=== PATIENT | female | born 1940 | race Caucasian/White ===

== ENCOUNTER 2018-06-16 12:37 | Inpatient (IN) ==
[2018-06-16] MEDS: *HR* HYDROcodone/Acet 5/325 mg TABLET PO PRN (16:44)
[2018-06-16] MEDS: Isosorbide MONOnitrate (24 HR) 60 MG TAB.ER.24H PO SCH (20:32)
[2018-06-16] MEDS: *HR* Enoxaparin 40 MG/0.4 ML SYRINGE SQ SCH (20:39)
[2018-06-16] MEDS: Melatonin 3 MG TABLET PO PRN (20:40)
[2018-06-16] MEDS: Gabapentin 100 MG CAPSULE PO PRN (20:40)
[2018-06-17] MEDS: *HR* HYDROcodone/Acet 5/325 mg TABLET PO PRN ×3 (03:43→17:38)
[2018-06-17 05:26] LABS: Basophils % 0.4 %; Eosinophils # 0.3 K/mcL (0.0-0.6); Eosinophils % 3.4 %; Hematocrit 33.3 % (35.3-44.9); Hemoglobin 11.4 g/dL (11.5-15.4); Immature Granulocytes % 0.5 % (0-4); Lymphocytes # 2.5 K/mcL (0.6-4.6); Lymphocytes % 30.6 %; Mean Corpuscular HGB Conc 34.2 g/dL (31.6-35.5); Mean Corpuscular Hemoglobin 29.9 pg (28.0-33.3); Mean Corpuscular Volume 87.4 fL (83.0-100.0); Mean Platelet Volume 10.8 fL (9.4-12.4); Monocytes # 0.9 K/mcL (0.0-1.3); Monocytes % 11.3 %; Neutrophils # 4.4 K/mcL (1.6-8.9); Platelet Count 214 K/mcL (140-400); Red Blood Count 3.81 M/mcL (3.82-4.97); Red Cell Distribution Width 13.2 % (11.5-14.5); Segmented Neutrophils % 53.8 %
[2018-06-17 05:31] LABS: INR 1.3; Prothrombin Time 14.6 Seconds (9.4-12.1)
[2018-06-17 05:44] LABS: BUN/Creatinine Ratio 22 (6-26); Blood Urea Nitrogen 15 mg/dL (8-23); Calcium 9.5 mg/dL (8.6-10.3); Carbon Dioxide 32 mEq/L (23-29); Chloride 92 mEq/L (98-107); Glucose 156 mg/dL (70-105); Osmolality,Calculated 276 (280-300); Potassium 3.8 mEq/L (3.5-5.1); Sodium 131 mEq/L (136-145); eGFR For Non-African Americans > 60 (> 60)
[2018-06-17] MEDS: hydroCHLOROthiazide 25 MG TABLET PO SCH (08:51)
[2018-06-17] MEDS: Cholecalciferol (D-3) 1,000 UNIT TABLET PO SCH (08:52)
[2018-06-17] MEDS: Loratadine 10 MG TABLET PO SCH (08:52)
[2018-06-17] MEDS: Isosorbide MONOnitrate (24 HR) 60 MG TAB.ER.24H PO SCH ×2 (08:52→20:41)
[2018-06-17] MEDS: Magnesium Oxide 400 MG TABLET PO SCH (08:53)
[2018-06-17] MEDS: *HR* Enoxaparin 40 MG/0.4 ML SYRINGE SQ SCH (08:53)
[2018-06-17] MEDS: [UNRECOGNIZED DRUG - OTHER] PO SCH (08:58)
[2018-06-17] MEDS: (Mirabegron [Myrbetriq] 25 MG) PO SCH (08:58)
[2018-06-17] MEDS ORDERED: Acetaminophen 325 MG TABLET PO PRN (15:02)
--- NOTE | 2018-06-17 15:04 | Internal Med History&Physical ---
Date of Encounter: 06/17/18 Time of Encounter: 14:40 Assessment and Plan (1) Total knee replacement status Current visit: Yes Status: Acute Lovenox has been ordered for DVT prophylaxis. PT and OT evaluations will be done. Analgesics will be given as needed. Qualifiers: Laterality: left Qualified Code(s): Z96.652 - Presence of left artificial knee joint (2) Hypertension Current visit: Yes Status: Chronic Continue captopril and HCTZ. Qualifiers: Hypertension type: essential hypertension Qualified Code(s): I10 - Essential (primary) hypertension (3) Hypothyroidism Current visit: Yes Status: Chronic Continue Synthroid. Check TSH in a.m. Qualifiers: Hypothyroidism type: unspecified Qualified Code(s): E03.9 - Hypothyroidism , unspecified (4) Hyperlipidemia Current visit: Yes Status: Chronic Check lipid profile in a.m. Continue present dose Zocor for now. Qualifiers: Hyperlipidemia type: unspecified Qualified Code(s): E78.5 - Hyperlipidemia , unspecified (5) DJD (degenerative joint disease) Current visit: Yes Status: Chronic Continue Tylenol and [place] prn Qualifiers: Osteoarthritis location: unspecified site Osteoarthritis type: unspecified Qualified Code(s): M19.90 - Unspecified osteoarthritis, unspecified site Internal Medicine - H&P: HPI Chief complaint: Left total knee replacement Admitted From: Hospital to Hospital Transfer Plans for Post Hospital Care: Home History of present illness: Ms. Moe is a 77 year old female who underwent elective left TKR at [facility] earlier this week. Her postop course was unremarkable and she was discharged to [facility] swing bed for rehabilitation therapy prior to returning to independent living. [facility] skeletal history is significant for DJD with chronic low back pain. She has had right carpal tunnel syndrome surgery. She has left carpal tunnel syndrome without surgical intervention yet. She denies gout or other bone joint or muscle disorders. Past Med Surg Social Fam HX - Past Medical History Medical history: arthritis, diabetes, hyperlipidemia, hypertension, thyroid disease Psychiatric history: no psych history - Past Surgical History Surgical History: Additional surgical history: eye implants. partial knee replacement right knee. carpal tunnel surgery left wrist - Social History Smoking Status: Never smoker Smokeless Tobacco Status: No Alcohol use: none Drug use: none - Family History Father Living Status: Hx Family Cardiac Disorders: Yes Mother Living Status: Hx Family Cardiac Disorders: Yes Internal Medicine - H&P: Meds Albuterol Sulfate [Albuterol Inhaler] 2 puff IH Q6HR PRN #1 hfa.aer.ad 04/10/16 [Rx] Captopril [Capoten] 25 mg PO BID 06/16/18 [History] Cholecalciferol (Vitamin D3) [Vitamin D] 4,000 unit PO DAILY 06/16/18 [History] Cranberry Conc/C/Bacill Coag [Azo Cranberry Tablet] 1 each PO DAILY 06/16/18 [ History] Enoxaparin [Lovenox] 40 mg SQ DAILY 06/16/18 [History] Gabapentin [Neurontin] 100 mg PO BID PRN 06/16/18 [History] HYDROcodone/Acet 5/325 mg [[place] 5-325 mg] 1 tab PO Q6H PRN 06/16/18 [History] Hydrochlorothiazide [Microzide] 12.5 mg PO DAILY 06/16/18 [History] Isosorbide MONOnitrate [Isosorbide Mononitrate ER] 60 mg PO BID 06/16/18 [ History] Levothyroxine Sodium [Levoxyl] 100 mcg PO DAILY 06/16/18 [History] Loratadine [Claritin] 10 mg PO DAILY 06/16/18 [History] Magnesium Oxide [Magnesium] 800 mg PO DAILY 06/16/18 [History] Melatonin [Melatin] 3 mg PO HS PRN 06/16/18 [History] Mirabegron [Myrbetriq] 25 mg PO DAILY 06/16/18 [History] Naproxen [Naprosyn] 500 mg PO BID 06/16/18 [History] Omeprazole [PriLOSEC] 1 tab PO DAILY PRN 06/16/18 [History] Oxazepam [Serax] 15 mg PO DAILY 06/16/18 [History] Pravastatin Sodium [Pravachol] 20 mg PO DAILY 06/16/18 [History] 3 Allergy/AdvReac Type Severity Reaction Status Date / Time No Known Allergies Allergy Verified 04/10/16 05:37 All Systems PM: A 10-system review of systems was performed and is negative for pertinent findings except as documented above in the HPI. Review of systems: Gen.: She states her weight is stable the past few months Cardiovascular: She has history of hypertension but denies GA angina DVT or pulmonary embolus. She reports she has "enlarged heart" and has occasional edema. Respiratory: She is a lifelong nonsmoker and has no known chronic lung disease GI: She denies disorders of her liver gallbladder or exocrine pancreas : She has overactive bladder. She denies other kidney or bladder disorders. Neurologic: She denies large distribution strokes or seizures. Endocrine: She has been diagnosed with borderline DM 2. She has hypothyroidism and hyperlipidemia. Hematology/oncology: She was unaware she had mild anemia on labs today. She denies internal malignancies or other blood disorders. Psychiatric: She has anxiety but denies depression or other mental health issues. [place] skeletal: As per history of present illness - Constitutional Vitals: Temp Pulse Resp BP Pulse Ox 98.4 F 92 16 162/94 94 06/17/18 06:25 06/17/18 06:25 06/17/18 06:25 06/17/18 06:25 06/17/18 06:25 Exam: Gen.: She is a well-developed overweight female lying in bed who appears in no acute distress at present time HEENT: Head is atraumatic and normocephalic. Eyes: EOMI. There is no scleral icterus. Mouth: Mucosa is moist. Neck: Supple and nontender. There is no thyromegaly or adenopathy noted. Heart: Regular without murmurs gallops or ectopics Lungs: No wheezes or crackles are heard. Abdomen: Soft and nontender. No masses or guarding are noted. Extremities: There is no cyanosis edema or clubbing noted. Dorsalis pedis and posttibial pulses are trace palpable bilaterally. She has a surgical bandage over the left anterior knee area from recent surgery. Neurologic: Mental status: She is talkative and a good historian. Cranial nerves: Smile is symmetric. Forehead wrinkles bilaterally. Tongue protrudes midline. EOMI. Motor: There is no pronator drift. Cerebellar: Finger to nose is intact bilaterally. Skin: Warm and dry Internal Med - H&P Results - Labs CBC & Chem 7: 06/17/18 05:05 06/17/18 05:05 Labs: Short CBC 06/17/18 Range/Units 05:05 WBC 8.2 (4.3-11.1) K/mcL Hgb 11.4 L (11.5-15.4) g/dL Hct 33.3 L (35.3-44.9) % Plt Count 214 (140-400) K/mcL Neutrophils # 4.4 (1.6-8.9) K/mcL BMP 06/17/18 05:05 Sodium 131 L Potassium 3.8 Chloride 92 L Carbon Dioxide 32 H BUN 15 Creatinine 0.68 Glucose 156 H Calcium 9.5
[2018-06-17] MEDS: Artificial Tears SOLN 15 ML BOTTLE BOTH EYES SCH ×2 (17:37→20:44)
[2018-06-17] MEDS: Melatonin 3 MG TABLET PO PRN (20:42)
[2018-06-17] MEDS: Gabapentin 100 MG CAPSULE PO PRN (20:43)
[2018-06-18] MEDS: *HR* HYDROcodone/Acet 5/325 mg TABLET PO PRN ×3 (01:51→20:09)
[2018-06-18 05:37] LABS: Chol/HDL Ratio 2.5 (0-4.9); Magnesium 1.8 mg/dL (1.6-2.6)
[2018-06-18 05:54] LABS: Thyroid Stimulating Hormone 2.865 mcIU/mL (0.340-5.600)
[2018-06-18] MEDS: hydroCHLOROthiazide 25 MG TABLET PO SCH (09:24)
[2018-06-18] MEDS: Isosorbide MONOnitrate (24 HR) 60 MG TAB.ER.24H PO SCH ×2 (09:25→20:09)
[2018-06-18] MEDS: Loratadine 10 MG TABLET PO SCH (09:25)
[2018-06-18] MEDS: Cholecalciferol (D-3) 1,000 UNIT TABLET PO SCH (09:25)
[2018-06-18] MEDS: Magnesium Oxide 400 MG TABLET PO SCH (09:25)
[2018-06-18] MEDS: *HR* Enoxaparin 40 MG/0.4 ML SYRINGE SQ SCH (09:27)
[2018-06-18] MEDS: [UNRECOGNIZED DRUG - OTHER] PO SCH (09:41)
[2018-06-18] MEDS: FISH OIL PO SCH (09:42)
[2018-06-18] MEDS: (Mirabegron [Myrbetriq] 25 MG) PO SCH (09:42)
[2018-06-18] MEDS: Gabapentin 100 MG CAPSULE PO PRN (14:07)
[2018-06-19] MEDS: Magnesium Oxide 400 MG TABLET PO SCH (08:02)
[2018-06-19] MEDS: Cholecalciferol (D-3) 1,000 UNIT TABLET PO SCH (08:02)
[2018-06-19] MEDS: hydroCHLOROthiazide 25 MG TABLET PO SCH (08:04)
[2018-06-19] MEDS: Isosorbide MONOnitrate (24 HR) 60 MG TAB.ER.24H PO SCH ×2 (08:04→20:22)
[2018-06-19] MEDS: Loratadine 10 MG TABLET PO SCH (08:05)
[2018-06-19] MEDS: *HR* Enoxaparin 40 MG/0.4 ML SYRINGE SQ SCH (08:05)
[2018-06-19] MEDS: FISH OIL PO SCH (08:05)
[2018-06-19] MEDS: [UNRECOGNIZED DRUG - OTHER] PO SCH (08:06)
[2018-06-19] MEDS: Gabapentin 100 MG CAPSULE PO PRN ×2 (08:13→20:23)
[2018-06-19] MEDS: *HR* HYDROcodone/Acet 5/325 mg TABLET PO PRN (09:16)
[2018-06-19 10:39] LABS: Estimated Average Glucose 126 mg/dl
[2018-06-19] MEDS: Melatonin 3 MG TABLET PO PRN (20:22)
[2018-06-20 06:19] LABS: Basophils % 0.4 %; Eosinophils # 0.1 K/mcL (0.0-0.6); Eosinophils % 0.8 %; Hematocrit 33.6 % (35.3-44.9); Hemoglobin 11.6 g/dL (11.5-15.4); Immature Granulocytes % 0.9 % (0-4); Lymphocytes # 2.4 K/mcL (0.6-4.6); Lymphocytes % 24.8 %; Mean Corpuscular HGB Conc 34.5 g/dL (31.6-35.5); Mean Corpuscular Hemoglobin 29.9 pg (28.0-33.3); Mean Corpuscular Volume 86.6 fL (83.0-100.0); Mean Platelet Volume 10.6 fL (9.4-12.4); Monocytes # 0.9 K/mcL (0.0-1.3); Monocytes % 9.4 %; Platelet Count 278 K/mcL (140-400); Red Blood Count 3.88 M/mcL (3.82-4.97); Red Cell Distribution Width 13.2 % (11.5-14.5); Segmented Neutrophils % 63.7 %
[2018-06-20 06:37] VITALS: BP 134/68
[2018-06-20] MEDS: (Mirabegron [Myrbetriq] 25 MG) PO SCH ×2 (07:57→08:47)
[2018-06-20] MEDS: Artificial Tears SOLN 15 ML BOTTLE BOTH EYES SCH (08:00)
[2018-06-20] MEDS: Loratadine 10 MG TABLET PO SCH (08:43)
[2018-06-20] MEDS: Isosorbide MONOnitrate (24 HR) 60 MG TAB.ER.24H PO SCH (08:44)
[2018-06-20] MEDS: hydroCHLOROthiazide 25 MG TABLET PO SCH (08:44)
[2018-06-20] MEDS: *HR* Enoxaparin 40 MG/0.4 ML SYRINGE SQ SCH (08:44)
[2018-06-20] MEDS: FISH OIL PO SCH (08:44)
[2018-06-20] MEDS: Magnesium Oxide 400 MG TABLET PO SCH (08:44)
[2018-06-20] MEDS: [UNRECOGNIZED DRUG - OTHER] PO SCH (08:44)
[2018-06-20] MEDS: Cholecalciferol (D-3) 1,000 UNIT TABLET PO SCH (08:45)
[2018-06-20] MEDS: Gabapentin 100 MG CAPSULE PO PRN (08:51)
--- NOTE | 2018-06-20 12:12 | Discharge Summary ---
Date of Encounter: 06/20/18 Time of Encounter: 12:00 - Discharge Diagnosis (1) Total knee replacement status Priority: Primary Status: Acute Qualifiers: Laterality: left Qualified Code(s): Z96.652 - Presence of left artificial knee joint (2) Hypertension Priority: Secondary Status: Chronic Qualifiers: Hypertension type: essential hypertension Qualified Code(s): I10 - Essential (primary) hypertension (3) Hypothyroidism Priority: Secondary Status: Chronic Qualifiers: Hypothyroidism type: unspecified Qualified Code(s): E03.9 - Hypothyroidism , unspecified (4) Hyperlipidemia Priority: Secondary Status: Chronic Qualifiers: Hyperlipidemia type: unspecified Qualified Code(s): E78.5 - Hyperlipidemia , unspecified (5) DJD (degenerative joint disease) Priority: Secondary Status: Chronic Qualifiers: Osteoarthritis location: unspecified site Osteoarthritis type: unspecified Qualified Code(s): M19.90 - Unspecified osteoarthritis, unspecified site Hospital course: Ms. Moe is a 77 year old female who underwent elective left TKR at [facility] earlier this week. Her postop course was unremarkable and she was discharged to [facility] swing bed for rehabilitation therapy prior to returning to independent living. Initial orders were written by the emergency room physician. I saw her on June 17 and performed the swing bed history and physical. She had physical therapy and occupational therapy evaluations with ongoing interventions. She made rapid progress and felt stable for discharge home on June 20. She was offered longer stay but declined. She will have home health services offered. DME recommendations included bedside commode and frontwheel wheeled walker. She will follow with her PCP and orthopedist within 1 week. Additional lab work done during hospital stay showed hemoglobin A1c 6.0%, BN peptide 38, TSH 2.865, and lipid profile total cholesterol/HDL ratio of 2.5. - Time Spent with Patient Total time spent providing and/or coordinating discharge services: - Discharge Medications Prescriptions: Rivaroxaban [Xarelto] 10 mg PO 1700 #7 tablet Home Medications: Albuterol Sulfate [Albuterol Inhaler] 2 puff IH Q6HR PRN #1 hfa.aer.ad 04/10/16 [Rx] Captopril [Capoten] 25 mg PO BID 06/16/18 [History] Cholecalciferol (Vitamin D3) [Vitamin D3] 4,000 unit PO DAILY 06/16/18 [History] Cranberry Conc/C/Bacill Coag [Azo Cranberry Tablet] 1 each PO DAILY 06/16/18 [ History] Enoxaparin [Lovenox] 40 mg SQ DAILY 06/16/18 [History] Gabapentin [Neurontin] 100 mg PO BID PRN 06/16/18 [History] HYDROcodone/Acet 5/325 mg [[place] 5-325 mg] 1 tab PO Q6H PRN 06/16/18 [History] Hydrochlorothiazide [Microzide] 12.5 mg PO DAILY 06/16/18 [History] Isosorbide MONOnitrate [Isosorbide Mononitrate ER] 60 mg PO BID 06/16/18 [ History] Levothyroxine Sodium [Levoxyl] 100 mcg PO DAILY 06/16/18 [History] Loratadine [Claritin] 10 mg PO DAILY 06/16/18 [History] Magnesium Oxide [Magnesium] 800 mg PO DAILY 06/16/18 [History] Melatonin [Melatin] 3 mg PO HS PRN 06/16/18 [History] Mirabegron [Myrbetriq] 25 mg PO DAILY 06/16/18 [History] Omeprazole [PriLOSEC] 1 tab PO DAILY PRN 06/16/18 [History] Oxazepam [Serax] 15 mg PO DAILY 06/16/18 [History] Pravastatin Sodium [Pravachol] 20 mg PO DAILY 06/16/18 [History] Naproxen [Naprosyn] 500 mg PO BID PRN #0 06/20/18 [Rx] Rivaroxaban [Xarelto] 10 mg PO 1700 #7 tablet 06/20/18 [Rx] Allergies/Adverse Reactions: 3 Allergy/AdvReac Type Severity Reaction Status Date / Time No Known Allergies Allergy Verified 04/10/16 05:37 Date of admission: 06/16/18 14:12 Primary care physician: Anil Blanchard M.D. Consults: 06/16/18 14:26 Consult to Occupational Therapy [CONS] Routine Comment: Evaluate, Plan and Implement Plan of Care Reason for Consult: Evaluate, Plan and Implement Plan of Care Does patient have active BEDREST order?: No Is patient medically & hemodynamically stable?: Yes Patient assessed for mobility or mobilized this visit?: Yes Consult to Physical Therapy [CONS] Routine Comment: Evaluate, Plan and Implement Plan of Care Reason for Consult: Evaluate, Plan and Implement Plan of Care Does patient have active BEDREST order?: No Is patient medically & hemodynamically stable?: Yes Patient assessed for mobility or mobilized this visit?: Yes Consult to Cutting And Splicing Supervisor [CONS] Routine Reason for SW Consult: Discharge Planning - Constitutional Vitals: Temp Pulse Resp BP Pulse Ox 98.4 F 95 16 134/68 95 06/20/18 06:35 06/20/18 06:35 06/20/18 06:35 06/20/18 06:35 06/20/18 06:35 - Patient Status Disposition: Home Health Service - Discharge Instructions Follow Up With: Anil Blanchard [Non-Partnered Physician] - 1 week - Diet and Activity Activity: as per physical therapy Diet: advance to your usual diet
--- NOTE | 2018-06-20 12:17 | Physician Discharge Referral ---
Home Health/Hosp Referral Info Transfer to: Home Health Attending Provider: Jeffrey Provider in Charge Post Discharge: PCP (Anil Blanchard M.D.) - Diagnosis (1) Total knee replacement status Priority: Primary Status: Acute (2) Hypertension Priority: Secondary Status: Chronic (3) Hypothyroidism Priority: Secondary Status: Chronic (4) Hyperlipidemia Priority: Secondary Status: Chronic (5) DJD (degenerative joint disease) Priority: Secondary Status: Chronic - Respiratory Orders Smoking Cessation: Smoking cessation has been advised. For more information, call the [place] Tobacco Quit Line at 5-184-NQDD-NOW. - Diet/Nutrition Diet/Nutrition Orders: No Concentrated Sweets - Activity Activity Orders: Walker - Services Needed Following services are medically necessary services: Nursing, Home Health Aide, Physical Therapy, Occupational Therapy - Transfer Medications Prescriptions: Rivaroxaban [Xarelto] 10 mg PO 1700 #7 tablet Home Medications: Albuterol Sulfate [Albuterol Inhaler] 2 puff IH Q6HR PRN #1 hfa.aer.ad 04/10/16 [Rx] Captopril [Capoten] 25 mg PO BID 06/16/18 [History] Cholecalciferol (Vitamin D3) [Vitamin D3] 4,000 unit PO DAILY 06/16/18 [History] Cranberry Conc/C/Bacill Coag [Azo Cranberry Tablet] 1 each PO DAILY 06/16/18 [ History] Enoxaparin [Lovenox] 40 mg SQ DAILY 06/16/18 [History] Gabapentin [Neurontin] 100 mg PO BID PRN 06/16/18 [History] HYDROcodone/Acet 5/325 mg [[place] 5-325 mg] 1 tab PO Q6H PRN 06/16/18 [History] Hydrochlorothiazide [Microzide] 12.5 mg PO DAILY 06/16/18 [History] Isosorbide MONOnitrate [Isosorbide Mononitrate ER] 60 mg PO BID 06/16/18 [ History] Levothyroxine Sodium [Levoxyl] 100 mcg PO DAILY 06/16/18 [History] Loratadine [Claritin] 10 mg PO DAILY 06/16/18 [History] Magnesium Oxide [Magnesium] 800 mg PO DAILY 06/16/18 [History] Melatonin [Melatin] 3 mg PO HS PRN 06/16/18 [History] Mirabegron [Myrbetriq] 25 mg PO DAILY 06/16/18 [History] Omeprazole [PriLOSEC] 1 tab PO DAILY PRN 06/16/18 [History] Oxazepam [Serax] 15 mg PO DAILY 06/16/18 [History] Pravastatin Sodium [Pravachol] 20 mg PO DAILY 06/16/18 [History] Naproxen [Naprosyn] 500 mg PO BID PRN #0 06/20/18 [Rx] Rivaroxaban [Xarelto] 10 mg PO 1700 #7 tablet 06/20/18 [Rx] Allergies/Adverse Reactions: 3 Allergy/AdvReac Type Severity Reaction Status Date / Time No Known Allergies Allergy Verified 04/10/16 05:37 Certification: Further, I certify that my clinical findings support that this patient is homebound (i.e. absences from home require considerable and taxing effort and are for medical reasons or christianity services or infrequently or short duration when for other reasons) because: Homebound Reason: Leaving home requires considerable and taxing effort due to condition (Total knee replacement) Attestation: My signature below is to certify that this patient is under my care and that I, or nurse practitioner, or a physician's golf course assistant working with me, has a face-to -face encounter with this patient.
== END 2018-06-20 15:33 | disposition home health service (06) | DRG 561 ==
LOC: INPPIK 14:12
PROVIDERS: ADMIT Internal Medicine; ATTEND Internal Medicine